=== PATIENT | male | born 1950 | race Caucasian/White ===

== ENCOUNTER → 2024-01-24 | Outpatient (CLI) | payer MEDICARE, OTHER, SELFPAY ==
--- NOTE | 2024-01-24 08:16 | AAAS_ITS ---
Reason For Study: Screening Aorta Measurements Aorta Doppler Measurements Proximal aorta measures1.90 x 1.90cm. in cross- Peak systolic flow velocities within the proximal sectional axis. aorta measure 86.8 cm/sec. Proximal aorta measures2.00cm. in longitudinal Peak systolic flow velocities within the mid aorta axis. measure 103.1 cm/sec. Mid aorta measures1.84 x 1.71cm. in cross- Peak systolic flow velocities within the distal sectional axis. aorta measure 95.9 cm/sec. Mid aorta measures1.83cm. in longitudinal axis. Distal aorta measures1.62 x 1.63cm. in cross- sectional axis. Distal aorta measures1.67cm. in longitudinal axis. Left Iliac Artery Left iliac artery measures 1.29 x 1.30 cm. in the cross-sectional axis. Left iliac artery measures 1.30 cm. in the longitudinal axis. Peak systolic velocity in the left iliac artery measures 72.3 cm/sec. Right Iliac Artery Right iliac artery measures 1.28 x 1.22 cm. in the cross-sectional axis. Right iliac artery measures 1.12 cm. in the longitudinal axis. Peak systolic velocity in the right iliac artery measures 83.2 cm/sec. Procedure Aorta IVC Iliac vasculature or bypass grafts [id number]. Exam performed in department. VL/AAA Screening Interpretation Summary Maximal abdominal aortic diameter 1.9 x 1.9 cm proximally which is normal. Norm al aortic flow. Normal left common iliac artery at 1.29 x 1.3 cm in diameter Normal right common neck artery at 1.28 x 1.22 cm in diameter Ordering Physician: Joan Lisa Referring Physician: Joan Lisa Performed By: Alisha Jules RVT
== END | disposition home or self-care (01) ==
PROVIDERS: PCP Internal Medicine; Referring Provider Internal Medicine; Visit Provider Internal Medicine
DX: Z13.6 Encounter for screening for cardiovascular disorders (principal)
CPT/HCPCS: 76706